=== PATIENT | female | born 1980 | race Hispanic/Latino ===

== ENCOUNTER 2018-07-27 13:06 | Emergency (ER) | payer MEDICAID ==
--- NOTE | 2018-07-27 13:29 | C.PDOC ---
History Of Present Illness Patient is a 37 years old female presents to ED for complaints of 8/10 left flank pain associated with nausea that began 2 weeks ago. Patient reports pain worsens with food intake and twisting. Denies vomiting, dysuria, current preg elke, or any other physical complaints. Denies PMHx or prior similar complaints. Patient states pain worsened last week which prompted the ED visit. Patient did not take any medications for her symptoms. LNMP was 2 weeks ago. Patient reports smoking cigarettes and occasional drinking. PMD: * Wilbert Ren Time Seen by Provider: 07/27/18 13:25 Chief Complaint (Nursing): Abdominal Pain History Per: Patient History/Exam Limitations: no limitations Onset/Duration Of Symptoms: Hrs Current Symptoms Are (Timing): Still Present Severity: Severe Pain Scale Rating Of: 8 Radiation Of Pain To:: Flank Associated Symptoms: Nausea. denies: Fever, Chills, Vomiting, Diarrhea Exacerbating Factors: None Alleviating Factors: None Last Bowel Movement: Today Recent travel outside of the [place] States: No Abnormal Vaginal Bleeding: No Past Medical History Reviewed: Historical Data, Nursing Documentation, Vital Signs Vital Signs: Last Vital Signs Temp 97.6 F 07/27/18 13:17 Pulse 88 07/27/18 13:17 Resp 20 07/27/18 13:17 BP 118/84 07/27/18 13:17 Pulse Ox 100 07/27/18 13:17 - Medical History PMH: No Chronic Diseases Surgical History: Family History: States: Other Other Family History: Lukemia (Sister) - Social History Hx Tobacco Use: Yes Hx Alcohol Use: No Hx Substance Use: No - Immunization History Hx Tetanus Toxoid Vaccination: Yes Hx Influenza Vaccination: No Hx Pneumococcal Vaccination: No Review Of Systems Except As Marked, All Systems Reviewed And Found Negative. Constitutional: Negative for: Fever, Chills Cardiovascular: Negative for: Chest Pain Gastrointestinal: Positive for: Nausea, Other (Left Flank pain ). Negative for: Vomiting, Abdominal Pain, Diarrhea Genitourinary: Negative for: Dysuria Skin: Negative for: Rash Neurological: Negative for: Weakness, Numbness Physical Exam - Physical Exam Appears: Well, Non-toxic, No Acute Distress Skin: Normal Color, Warm, Dry, No Rash Head: Atraumatic, Normacephalic Eye(s): bilateral: Normal Inspection, EOMI Ear(s): Bilateral: Normal Nose: Normal Oral Mucosa: Moist Tongue: Normal Appearing Lips: Normal Appearing Throat: Normal Neck: Normal ROM, Supple Chest: Symmetrical, No Tenderness Cardiovascular: Rhythm Regular, No Murmur Respiratory: Normal Breath Sounds, No Rales, No Rhonchi, No Wheezing Gastrointestinal/Abdominal: Soft, Tenderness (Mild LUQ, left CVA tenderness) Rectal: Deferred Back: CVA Tenderness (Left sided ) Extremity: Normal ROM Extremity: Bilateral: Atraumatic, Normal Color And Temperature, Normal ROM Pulses: Left Radial: Normal, Right Radial: Normal Neurological/Psych: Oriented x3, Normal Speech Gait: Steady ED Course And Treatment - Laboratory Results Result Diagrams: 07/27/18 13:59 07/27/18 13:59 O2 Sat by Pulse Oximetry: 100 (RA) Pulse Ox Interpretation: Normal Medical Decision Making Medical Decision Making: Initial Impression: Left flank pain -- etiology is not clear Differential diagnosis includes but is not limited to: musculoskeletal, PUD, urinary source Initial Plan: * IV Fluids * ZOfran * Pepcid * Urinalysis * Blood work * D-Dimer Progress note(s): Pt pain is slightly better but source is still not clear. Will get CT to evaluate further. 4:47 PM--Pt feels better. CT unremarkable. Pt will follow up with PMD in a couple of days for re-evaluation. / Disposition Counseled Patient/Family Regarding: Studies Performed, Diagnosis, Need For Followup, Rx Given - Disposition Referrals: Wilbert Whitman MD [Medical Doctor] - Disposition: HOME/ ROUTINE Disposition Time: 16:47 Condition: IMPROVED Additional Instructions: Ms. Jason, thank you for letting us take care of you today. Return to the ER if your symptoms worsen, or if any problems. Take the medication listed below as prescribed. Follow up with Dr. Whitman in a couple of day for a re-evaluation. Prescriptions: Ranitidine HCl [Zantac] 1 tab PO BID #40 tablet Instructions: Flank Pain (DC), Peptic Ulcers (DC) Forms: [facility] (Kosovan) Print Language: YAKUT - POA Present On Arrival: None - Clinical Impression Clinical Impression: Flank pain, Gastritis - Scribe Statement The provider has reviewed the documentation as recorded by the Scribe Cecilio Newsome All medical record entries made by the Scribe were at my direction and personally dictated by me. I have reviewed the chart and agree that the record accurately reflects my personal performance of the history, physical exam, medical decision making, and the department course for this patient. I have also personally directed, reviewed, and agree with the discharge instructions and disposition.
[2018-07-27] MEDS ORDERED: Sodium Chloride 0.9% 1,000 ML IV ONE (13:32)
[2018-07-27 13:43] LABS: SQUAMOUS EPITHIAL 14 /hpf (0-5); URINE BILIRUBIN NEGATIVE (NEGATIVE); URINE BLOOD NEGATIVE (NEGATIVE); URINE CLARITY Hazy (Clear); URINE COLOR Yellow (YELLOW); URINE GLUCOSE (UA) NORMAL (Normal); URINE LEUKOCYTE ESTERASE NEG Leu/uL (Negative); URINE PROTEIN NEGATIVE (NEGATIVE); URINE UROBILINOGEN NORMAL mg/dL (0.2-1.0)
[2018-07-27] MEDS ORDERED: Sodium Chloride 0.9% 1,000 ML ONE (13:43)
[2018-07-27 13:44] LABS: HCG,QUALITATIVE URINE NEGATIVE (NEGATIVE)
[2018-07-27 14:04] LABS: BASO # 0.1 K/uL (0.0-0.2); BASO % 0.6 % (0.0-2.0); EOS # 0.4 K/uL (0.0-0.7); EOS % 3.3 % (0.0-4.0); HEMOGLOBIN 13.7 g/dL (11.0-16.0); LYMPH # 2.2 K/uL (1.0-4.3); LYMPH % 18.2 % (20.0-40.0); MEAN CORPUSCULAR HEMOGLOBIN 32.8 pg (27.0-31.0); MEAN CORPUSCULAR HGB CONC 35.3 g/dL (33.0-37.0); MEAN PLATELET VOLUME 6.8 fL (7.2-11.7); MONO # 1.3 K/uL (0.0-0.8); MONO % 10.6 % (0.0-10.0); NEUT # 8.2 K/uL (1.8-7.0); NEUT % 67.3 % (50.0-75.0); RBC 4.17 Mil/uL (3.80-5.20); RED CELL DISTRIBUTION WIDTH 13.8 % (11.5-14.5); WHITE BLOOD COUNT 12.2 K/uL (4.8-10.8)
[2018-07-27 14:16] LABS: ALB/GLOB RATIO 1.6 (1.0-2.1); ALBUMIN 4.2 g/dL (3.5-5.0); ALT/SGPT 13 U/L (9-52); AST/SGOT 27 U/L (14-36); BLOOD UREA NITROGEN 12 mg/dL (7-17); CALCIUM 8.9 mg/dl (8.6-10.4); GFR NON-AFRICAN AMERICAN > 60; LIPASE 128 U/L (23-300)
[2018-07-27 16:25] VITALS: BP 122/79; PULSE 81; RESP 17; TEMP 98
--- NOTE | 2018-07-27 16:41 | CT ---
Date of service: 07/27/2018 PROCEDURE: CT Abdomen and Pelvis without intravenous contrast HISTORY: left flank pain; possible kidney stone COMPARISON: None. TECHNIQUE: Axial and reformatted coronal and sagittal CT images of the abdomen and pelvis were obtained without IV or oral contrast administration.. Contrast dose: 0 Radiation dose: Total exam DLP = 1081.33 mGy-cm. This CT exam was performed using one or more of the following dose reduction techniques: Automated exposure control, adjustment of the mA and/or kV according to patient size, and/or use of iterative reconstruction technique. FINDINGS: LOWER THORAX: Unremarkable. LIVER: Unremarkable. No gross lesion or ductal dilatation. GALLBLADDER AND BILE DUCTS: Unremarkable. PANCREAS: Unremarkable. No gross lesion or ductal dilatation. SPLEEN: Unremarkable. ADRENALS: Unremarkable. No mass. KIDNEYS AND URETERS: Unremarkable. No hydronephrosis. No solid mass. VASCULATURE: Unremarkable. No aortic aneurysm. No aortic atherosclerotic calcification or mural plaque present. BOWEL: Unremarkable. No obstruction. No gross mural thickening. APPENDIX: No CT evidence of appendicitis. PERITONEUM: Unremarkable. No free fluid. No free air. LYMPH NODES: Unremarkable. No enlarged lymph nodes. BLADDER: Unremarkable. REPRODUCTIVE: Unremarkable. BONES: No acute fracture. OTHER FINDINGS: None. IMPRESSION: No evidence of nephrolithiasis or hydronephrosis. No evidence of diverticulosis or diverticulitis.
[2018-07-27 16:50] VITALS: O2SAT 100
== END 2018-07-27 16:56 | disposition home or self-care (01) ==
LOC: C.ER 13:06
DX: K29.70 Gastritis, unspecified, without bleeding (principal)
CPT/HCPCS: 74176; 80053; 81001; 83690; 84703; 85025; 85378; 96361; 96374; 96375; 99285; J1885; J7030